=== PATIENT | male | born 1950 | race Caucasian/White ===

== ENCOUNTER 2020-01-17 06:06 | Outpatient (REF) | payer MEDICARE, BC, SELFPAY ==
[2020-01-17 11:27] LABS: Hematocrit 49.6 % (42-52); Hemoglobin 16.2 g/dl (14.0-18.0); Mean Corpuscular HGB Conc 32.7 g/dl (31.0-36.0); Mean Corpuscular Hemoglobin 29.8 pg (27.0-33.0); Mean Corpuscular Volume 91.2 fL (80-98); Mean Platelet Volume 10.3 fL (9.4-12.4); Platelet Count 158 X10*3/uL (160-400); Red Blood Count 5.44 X10*6/uL (4.60-5.80); Red Cell Distribution Width 12.1 % (11.0-16.0); White Blood Count 5.8 X10*3/uL (4.8-10.8)
[2020-01-17 12:25] LABS: Alanine Aminotransferase 13 U/L (0-40); Albumin Level 4.3 g/dL (3.5-5.0); Alkaline Phosphatase 78 U/L (39-117); Anion Gap 12 (12-20); Aspartate Amino Transferase 14 U/L (5-37); Blood Urea Nitrogen 22 mg/dL (9-16); Calcium 8.6 mg/dL (8.4-10.2); Carbon Dioxide 31 mmol/L (22-29); Chloride 103 mmol/L (96-108); Cholesterol 188 mg/dL; Estimated Glomerular Filt Rate > 60; Glucose Fasting 96 mg/dL (60-99); HDL Cholesterol 38 mg/dL; LDL Cholesterol Calculated 131 mg/dl; Potassium 4.1 mmol/l (3.3-5.1); Sodium 142 mmol/L (135-145); Triglycerides 98 mg/dL
[2020-01-17 12:45] LABS: Prostate Specific Antigen 0.69 ng/mL (<0.05-4.0)
== END 2020-01-17 06:07 | disposition home or self-care (01) ==
LOC: HO.HMGCLDS 06:06
PROVIDERS: PCP Internal Medicine; Visit Provider Urology
DX: Z00.00 Encounter for general adult medical examination without abnormal findings (principal); C61 Malignant neoplasm of prostate
CPT/HCPCS: 36415; 80053; 80061; 84153; 85027

== ENCOUNTER 2020-06-06 05:58 | Outpatient (REF) | payer MEDICARE, BC, SELFPAY ==
[2020-06-06 07:11] LABS: MANUAL DIFF FLAG NO
[2020-06-06 07:17] LABS: Basophils Percent Auto 0.4 % (0-2); Eosinophils Absolute Auto 0.1 X10*3/uL (0.0-0.4); Eosinophils Percent Auto 2.5 % (0-4); Hematocrit 45.3 % (42-52); Hemoglobin 15.6 g/dl (14.0-18.0); Imm Gran Abs Auto 0.03 X10*3/uL (0.00-0.03); Imm Gran Pct Auto 0.6 % (0.0-0.4); Lymphocytes Absolute Auto 1.2 X10*3/uL (1.2-4.9); Mean Corpuscular HGB Conc 34.4 g/dl (31.0-36.0); Mean Corpuscular Hemoglobin 30.1 pg (27.0-33.0); Mean Corpuscular Volume 87.5 fL (80-98); Mean Platelet Volume 10.4 fL (9.4-12.4); Monocytes Absolute Auto 0.5 X10*3/uL (0.1-1.2); Monocytes Percent Auto 9.4 % (2-11); Neutrophils Absolute Auto 3.4 X10*3/uL (2.0-8.3); Neutrophils Percent Auto 64.1 % (45-73); Platelet Count 167 X10*3/uL (160-400); Red Blood Count 5.18 X10*6/uL (4.60-5.80); Red Cell Distribution Width 12.1 % (11.0-16.0); White Blood Count 5.2 X10*3/uL (4.8-10.8)
[2020-06-06 08:01] LABS: Alanine Aminotransferase 14 U/L (0-40); Albumin Level 4.4 g/dL (3.5-5.0); Alkaline Phosphatase 79 U/L (39-117); Anion Gap 14 (12-20); Aspartate Amino Transferase 16 U/L (5-37); Bilirubin Total 0.8 mg/dL (0.0-1.0); Blood Urea Nitrogen 17 mg/dL (9-16); Calcium 8.9 mg/dL (8.4-10.2); Carbon Dioxide 27 mmol/L (22-29); Chloride 105 mmol/L (96-108); Estimated Glomerular Filt Rate > 60; Glucose Random 104 mg/dL (60-115); Potassium 3.8 mmol/L (3.3-5.1); Sodium 142 mmol/L (135-145)
[2020-06-08 19:41] LABS: TS Negative Control Passed; TS Panel A 0; TS Panel B 0; TS Positive Control Passed; TSpotTB Negative (SeeBelow)
== END 2020-06-06 05:59 | disposition home or self-care (01) ==
LOC: HO.LAB 05:58
PROVIDERS: PCP Internal Medicine; Visit Provider Dermatology
DX: L40.0 Psoriasis vulgaris (principal)
CPT/HCPCS: 36415; 80053; 85025; 86481

== ENCOUNTER 2020-09-18 10:54 | Outpatient (REF) | payer MEDICARE, BC, SELFPAY ==
--- NOTE | ~2020-09-18 | US_ITS ---
EXAMINATION: US ABDOMEN COMPLETE CLINICAL INFORMATION: Chronic hepatitis C. COMPARISON: Ultrasound abdomen complete 02/08/2019 and 11/25/2017. MRI abdomen 03/16/2011. TECHNIQUE: Real-time imaging of the abdominal viscera. FINDINGS: PANCREAS: Normal. ABDOMINAL AORTA: The proximal, mid, and distal segments are normal in caliber. INFERIOR VENA CAVA: Visualized portions are normal. LIVER: Normal. The liver is normal in size. The liver contour is normal. Parenchymal echogenicity is normal. No focal hepatic lesion. There is no intrahepatic biliary duct dilatation seen. GALLBLADDER: Normal. The gallbladder is physiologically distended without evidence of stones, sludge, polyps, wall thickening or pericholecystic fluid. COMMON BILE DUCT: Normal in caliber measuring 0.2 cm in diameter. RIGHT KIDNEY: Normal. No hydronephrosis. No renal calculi or focal parenchymal lesions. The kidney measures 9.4 cm in maximum dimension. LEFT KIDNEY: Normal. No hydronephrosis. No renal calculi or focal parenchymal lesions. The kidney measures 8.7 cm in maximum dimension. SPLEEN: Normal. The spleen measures 11.1 cm in maximum dimension. FREE FLUID: None. US/US abdomen complete IMPRESSION: Unremarkable exam.
[2020-09-19 11:47] LABS: Alpha Fetoprotein 2.5 ng/mL (<6.1)
== END 2020-09-18 10:55 | disposition home or self-care (01) ==
LOC: HO.HMGCX 10:54
PROVIDERS: PCP Internal Medicine; Visit Provider Internal Medicine
DX: B18.2 Chronic viral hepatitis C (principal)
CPT/HCPCS: 36415; 76700; 82105

== ENCOUNTER 2023-07-09 08:29 | Outpatient (REF) | payer MEDICARE, BC, SELFPAY ==
[2023-07-09 10:25] LABS: MANUAL DIFF FLAG NO
[2023-07-09 10:48] LABS: Basophils Percent Auto 0.2 % (0-2); Eosinophils Absolute Auto 0.1 X10*3/uL (0.0-0.4); Eosinophils Percent Auto 2.1 % (0-4); Hematocrit 45.6 % (42.0-52.0); Hemoglobin 15.4 g/dl (14.0-18.0); Imm Gran Abs Auto 0.02 X10*3/uL (0.00-0.03); Imm Gran Pct Auto 0.3 % (0.0-0.4); Lymphocytes Absolute Auto 1.2 X10*3/uL (1.2-4.9); Lymphocytes Percent Auto 20.8 % (20-40); Mean Corpuscular HGB Conc 33.8 g/dl (31.0-36.0); Mean Corpuscular Hemoglobin 29.6 pg (27.0-33.0); Mean Corpuscular Volume 87.5 fL (80.0-98.0); Mean Platelet Volume 10.4 fL (9.4-12.4); Monocytes Absolute Auto 0.5 X10*3/uL (0.1-1.2); Monocytes Percent Auto 8.6 % (2-11); Neutrophils Absolute Auto 3.9 x10*3/uL (2.0-8.3); Platelet Count 173 X10*3/uL (160-400); Red Blood Count 5.21 X10*6/uL (4.60-5.80); White Blood Count 5.7 X10*3/uL (4.8-10.8)
[2023-07-09 11:07] LABS: Alanine Aminotransferase 18 U/L (0-40); Albumin Level 4.1 g/dL (3.5-5.0); Alkaline Phosphatase 98 U/L (39-117); Anion Gap 12 (12-20); Aspartate Amino Transferase 18 U/L (5-37); Bilirubin Total 0.7 mg/dL (0.0-1.0); Blood Urea Nitrogen 20 mg/dL (9-16); Calcium 9.2 mg/dL (8.4-10.2); Carbon Dioxide 26 mmol/L (22-29); Chloride 108 mmol/L (96-108); Estimated Glomerular Filt Rate > 60; Glucose Random 107 mg/dL (60-115); Potassium 3.9 mmol/L (3.3-5.1); Sodium 142 mmol/L (135-145); Total Protein 7.3 g/dL (6.5-8.0)
[2023-07-11 21:23] LABS: TS Negative Control Passed; TS Panel A 0; TS Panel B 1; TS Positive Control Passed; TSpotTB Negative (Negative)
== END 2023-07-09 08:30 | disposition home or self-care (01) ==
LOC: HO.HMGCLDS 08:29
PROVIDERS: PCP Internal Medicine; Visit Provider Dermatology
DX: L40.0 Psoriasis vulgaris (principal); L82.1 Other seborrheic keratosis
CPT/HCPCS: 36415; 80053; 85025; 86481

== ENCOUNTER 2024-08-30 08:22 | Outpatient (REF) | payer MEDICARE, BC, SELFPAY ==
--- NOTE | ~2024-08-30 | US_ITS ---
EXAMINATION: US ABDOMEN COMPLETE WITH LIVER ELASTOGRAPHY HISTORY: HEPATITIS c without hepatic coma TECHNIQUE: Real-time grayscale ultrasound imaging of the abdomen was performed and images were reviewed. COMPARISON: Comparison is made with the prior examination dated 09/18/2020. FINDINGS: Liver: The right lobe of the liver measures 14.5 cm in size. The left lobe of the liver measures 8.2 cm in size. The liver demonstrates mildly increased echotexture, consistent with steatosis. No focal mass or intrahepatic biliary ductal dilatation is identified. There is normal hepatopedal flow in the portal vein. Ultrasound elastography of the liver was performed with 10 separate measurements of the liver parenchyma with the patient in the supine position. Measurements were obtained approximately 2 cm below Reilly's capsule and perpendicular to the capsule. The median shear wave velocity is 1.75 m/s. The interquartile range/median (IQR/median) is 0.41. Gallbladder and biliary tree: The gallbladder is unremarkable, without evidence of calculi, wall thickening, or pericholecystic fluid. There is no sonographic Pereyra sign. The common bile duct is normal in caliber measuring 4 mm. Kidneys: The right kidney measures 10.6 cm in length. The left kidney measures 10.0 cm in length. The kidneys are unremarkable, without evidence of masses, hydronephrosis, or calculi. Pancreas: The pancreatic head, neck, and body are unremarkable. The pancreatic tail is obscured by bowel gas. Spleen: The spleen is normal in size and contour, measuring 12.3 cm in length. Abdominal aorta and inferior vena cava: The visualized portions of the abdominal aorta and inferior vena cava are normal in caliber. There is no free fluid in the abdomen. US/US abdomen comp w elastography IMPRESSION: Mild hepatic steatosis. The median shear wave velocity in the liver is 1.75 m/s, corresponding to a median liver stiffness of 9.2 kPa. The IQR/median value is 0.41. This is indicative of a poor quality data set, and the estimated liver stiffness may be unreliable. Findings are indicative of a high elastography value suggestive of compensated advanced chronic liver disease. REFERENCE: Society of Radiologists in Ultrasound Liver Stiffness Thresholds (2020): LIVER STIFFNESS THRESHOLDS: *Shear wave velocity less than 1.3 m/s (Liver Stiffness equal or less than 5 kPa): High probability of being normal. *Shear wave velocity less than 1.7 m/s (Liver Stiffness less than 9 kPa): In the absence of other known clinical signs, rules out compensated advanced chronic liver disease. *Shear wave velocity between 1.7-2.1 m/s (Liver Stiffness 9-13 kPa): Suggestive of compensated advanced chronic liver disease but need further test for confirmation. *Shear wave velocity between 2.1-2.4 m/s (Liver Stiffness 13-17 kPa): Rules in compensated advanced chronic liver disease. *Shear wave velocity greater than 2.4 m/s (Liver Stiffness over 17 kPa): Suggestive of clinically significant portal hypertension. QUALITY OF DATA SET: *IQR/Median value equal or less than 0.30 implies a quality data set. *IQR/Median value over 0.30 implies a poor quality data set. SIGNIFICANT CHANGE FROM PRIOR EXAM: Significant change if liver stiffness measurement is 10% or greater from prior exam. OTHER CONSIDERATIONS: The stage of liver fibrosis may be overestimated in the setting of acute hepatitis, liver inflammation, elevated liver function tests, hepatic vascular congestion, obstructive cholestasis, non-fasting state, and infiltrative diseases such as amyloidosis and lymphoma. In some patients with NAFLD, the liver stiffness thresholds for compensated advanced chronic liver disease may be lower. In causes other than viral hepatitis and NAFLD, liver stiffness thresholds are not well established. Electronically signed by: To Iyer MD 08/30/2024 09:55 AM EDT
--- OUTSIDE RECORDS SUMMARY | 2024-08-30 08:40 | XMS_ITS | Patient Health Record ---
Author Organization [facility] Address [address] [place] [address] Care Team Providers Care Mortar Carrier Name Role Phone Pablo Carney MD Primary Care Provider UnavailTo Burger [phone] Allergies Allergen (clinical drug ingredient) Drug/Non Drug Allergy documented on EMR Reaction Allergy Type Onset Date Status latex bandages (uncoded) rash Allergy Active Reason For Referral No Information Medications Medication SIG (Take, Route, Fr equency, Duration) Notes Start Date End Date Status Tremfya 100 MG/ML 1 ml Subcutaneous every 56 days Active Immunizations Vaccine Route Administration Date Status Comme nts Influenza Unknown 12/05/2019 Administered Influenza Unknown 02/07/2019 Refused Influenza Unknown 07/19/2024 Refused Problems Problem Type SNOMED Code ICD Code Onset Dates Problem Status W/U Status Risk Notes Problem 400177514 History of adenomatous polyp of colon (Z86.010) Active confirmed Problem 357442703 Tubular adenoma of colon (D12.6) Active confirmed Problem 938769212 Chronic hepatitis C without hepatic coma (B18.2) Active confirmed Vital Signs Temperature 97.5 degrees Fahrenheit 07/19/2024 Blood pressure diastolic 01 mm Hg 07/19/2024 Height 71 in 07/19/2024 Blood pressure systolic 001 mm Hg 07/19/2024 Weight 175 lbs 07/19/2024 BMI 24.4 kg/m2 07/19/2024 Procedures Procedure Date Ordered Date Performed Result Body Sit e COLONOSCOPY 07/19/2024 N/A Encounters Encounter Location Date Provider Diagnosis [facility] [address] [place] [address] 07/19/2024 To Valentino History of adenomato us polyp of colon Z86.010 ; Colon cancer screening Z12.11 and Chronic hepatitis C without hepatic coma B18.2 Assessments Encounter Date Diagnosis (ICD Code) Assessment Notes Treatment Notes Treatment Clinical Notes Section Notes 07/19/2024 Colon cancer screening (ICD-10 - Z12.11) 07/19/2024 History of adenomatous polyp of colon (ICD-10 - Z86.010) 07/19/2024 Chronic hepatitis C without hepatic coma (ICD-10 - B18.2) Plan Of Treatment Pending Test Test Name Order Date COLONOSCOPY 07/19/2024 BUN 03/04/2011 CREATININE 03/04/2011 LIVER PROFILE 06/09/2014 LIVER PROFILE 06/06/2014 LIVER PROFILE 07/31/2014 LIVER PROFILE 03/15/2014 LIVER PROFILE 10/11/2014 CBC w DIFF 06/09/2014 CBC w DIFF 06/06/2014 CBC w DIFF 03/15/2014 CBC w DIFF 10/11/2014 ALPHA-FETOPROTEIN,TUMOR MARKER 4 ALPHA-FETOPROTEIN,TUMOR MARKER 1 ALPHA-FETOPROTEIN,TUMOR MARKER 3 ALPHA-FETOPROTEIN,TUMOR MARKER 5 ALPHA-FETOPROTEIN,TUMOR MARKER 8 HEPATITIS C VIRAL LOAD 11/16/2017 HEPATITIS C VIRAL LOAD 10/11/2014 HEPATITIS C VIRAL LOAD 03/15/2014 HEPATITIS C VIRAL LOAD 06/09/2014 HEPATITIS C VIRAL LOAD 07/31/2014 HEPATITIS C VIRAL LOAD 06/06/2014 MRI ABD W&WO CONTRAST 03/04/2011 US ABD 02/03/2011 US ABD 09/12/2020 HCV LIVER FIBROSIS, FIBRO TEST 5 US abdomen comp w elastography 5 Future Test Test Name Order Date COLONOSCOPY 08/08/2013 COLONOSCOPY 02/07/2019 Next Appt Details Provider Name:To Molina Chicho , 10/27/2024 09:30:00 AM, [address] [facility] , [place], [place], [phone], Insurance Providers Payer Name Payer Address Payer Phone Subscriber Number Group Number Insured Name Patient Relationship to Insured Coverage Start Date Coverage End Date MEDICARE OF [place] [address] [place] [address] [phone] [id number] ARCHANA BELTRAN Self - patient is the insured [facility] [address] [place], [place] [id number] ARCHANA BELTRAN Self - patient is the insured Medical (General) History Medical History History ICD Code Tubular adenomas in 11/2003 a nd colonoscopy in 08/2008 was negative for polyps. Chronic hepatitis C--3 liver biopsies--most recent one was in 02/2011-Gr 1.5/ and St I./--no sig changes compard to 2002 and 1991---In 1998 he was treated with nonpegylated IF TIW and Ribavirin for 7 months, but without sustained response--Genotype 1. AFP of 8.4 and normal liver and spleen MRI in 03/2011. AST 71 and ALT of 102, WBC 3.6, Hgb 14.9, and plts 100K, INR 1.1 and PT 12.4 in 11/2012. Treateded with 12 weeks of Harvoni from 05/2014-08/2014--nondetectable Hep C viral load in 02/2015 with normal LFT's, 06/2016,11/2017 as well. Hep C was also nondetectable in 02/2019 Denies [place],DM,CVA,Lung disease,renal dise ase Hx of former alcohol abuse--sobriety sin ce 1996 Mild sigmoid diverticulosis Internal hemorrhoids Colonoscopy in 11/2013 with r emoval of a tubular adenoma, sigmoid diverticulosis, and internal hemorrhoids Prostate cancer diagnosed 07/2017--XRT in 12/2017 Psoriasis Negative colonoscopy in 07/2019 Surgical History Surgery Date(Month/Year) Cataracts both eyes 08/2018 Eye surgery Hernia surgery
[2024-09-06 02:19] LABS: FIB-ALT 15 U/L (9-46); FIB-Alpha-2-Macroglobulin 369 mg/dL (106-279); FIB-Apolipoprotein A1 144 mg/dL (94-176); FIB-GGT 17 U/L (3-70); FIB-Haptoglobin 135 mg/dL (43-212); FIB-Total Bilirubin 0.6 mg/dL (0.2-1.2); Liver Fibrosis Score 0.61; Liver Fibrosis Stage F3; Nec Inflam Act Grade A0; Nec Inflam Act Score 0.08
== END 2024-08-30 08:23 | disposition home or self-care (01) ==
LOC: HO.US 08:22
PROVIDERS: PCP Internal Medicine; Visit Provider Internal Medicine
DX: B18.2 Chronic viral hepatitis C (principal)
CPT/HCPCS: 36415; 76700; 76981; 81596; 82105

== ENCOUNTER → 2024-08-30 09:15 | Outpatient (BNV) | payer MEDICARE, BC, SELFPAY | PROVIDERS: PCP Internal Medicine; Visit Provider Radiology Diagnostic Radiology | DX: B19.20 Unspecified viral hepatitis C without hepatic coma (principal) | CPT/HCPCS: 76700; 76981 ==

== ENCOUNTER 2024-10-27 07:11 | Day surgery (SDC) | payer MEDICARE, BC, SELFPAY ==
--- OUTSIDE RECORDS SUMMARY | 2024-10-03 14:29 | XMS_ITS | Patient Health Record ---
Author Organization [facility] Address [address] [place] [address] Care Team Providers Care Interactive Web Developer Name Role Phone Pablo Carney MD Primary Care Provider To Ríos [phone] Allergies Allergen (clinical drug ingredient) Drug/Non Drug Allergy documented on EMR Reaction Allergy Type Onset Date Status latex bandages (uncoded) rash Allergy Active Results Component Value Reference Range Notes Alpha Fetoprotein Reviewed date:09/06/2024 01:49:22 PM Interpretation: Performing Lab:[address] [address] Notes/Report: Alpha Fetoprotein 3.0 <6.1 ng/mL This test was performed using the Estefani Avoca chemiluminescent method. Values obtained from different assay methods cannot be used interchangeably. AFP levels, regardless of value, should not be interpreted as absolute evidence of the presence or absence of disease. THIS TEST WAS PERFORMED AT: [facility] [address] [place] [id number] KASIE PRESTON MD Liver Fibrosis Pnl Reviewed date:09/06/2024 01:49:12 PM Interpretation: Performing Lab:[address] [address] Notes/Report: Liver Fibrosis Score 0.61 Liver Fibrosis Stage F3 Liver Fibrosis Interpretation SEE NOTE advanced fibrosis Fibro Test Score (f) Metavir Score f>=0 and f<=0.21 : F0 (no fibrosis) f>0.21 and f<=0.27 : F0-F1 (no fibrosis) f>0.27 and f<=0.31 : F1 (minimal fibrosis) f>0.31 and f<=0.48 : F1-F2 (minimal fibrosis) f>0.48 and f<=0.58 : F2 (moderate fibrosis) f>0.58 and f<=0.72 : F3 (advanced fibrosis) f>0.72 and f<=0.74 : F3-F4 (advanced fibrosis) f>0.74 and f<=1.00 : F4 (severe fibrosis) Nec Inflam Act Score 0.08 Nec Inflam Act Grade A0 Nec Inflam Act Interpretation SEE NOTE no activity ActiTest Score (a) Metavir Score a>=0 and a<=0.17 : A0 (no activity) a>0.17 and a<=0.29 : A0-A1 (no activity) a>0.29 and a<=0.36 : A1 (minimal activity) a>0.36 and a<=0.52 : A1-A2 (minimal activity) a>0.52 and a<=0.60 : A2 (significant activity) a>0.60 and a<=0.62 : A2-A3 (significant activity) a>0.62 and a<=1.00 : A3 (severe activity) XJO-Rzutr-4-Macroglobulin 369 106-279 mg/dL FIB-Haptoglobin 135 43-212 mg/dL FIB-Apolipoprotein A1 144 94-176 mg/dL FIB-Total Bilirubin 0.6 0.2-1.2 mg/dL FIB-GGT 17 3-70 U/L FIB-ALT 15 9-46 U/L Reference ID [id number] Footnote SEE NOTE The reliability of results is dependent on compliance with the preanalytical and analytical conditions recommended by [employer]. The tests have to be deferred for: acute hemolysis, acute hepatitis, acute inflammation, extra hepatic cholestasis. The advice of a specialist should be sought for interpretation in chronic hemolysis and Gilbert's syndrome. The test interpretation is not validated in liver transplant patients. Isolated extreme values of one of the components should lead to caution in interpreting the results. In case of discordance between a biopsy result and a test, it is recommended to seek the advice of a specialist. The causes of these discordances could be due to a flaw of the test or to a flaw in the biopsy: i.e. a liver biopsy has a 33% variability rate for one fibrosis stage. FibroTest is interpretable for chronic hepatitis B and C, alcoholic and non alcoholic steatosis. ActiTest is interpretable for chronic hepatitis B and C. The performance characteristics have been determined by [employer] [facility]. It has not been cleared or approved by the U.S. Food and Drug Administration. Performance characteristics refer to the analytical performance of the test. [employer], the associated logo, [employer] and all associated [employer] javier are the registered trademarks of [employer]. All third democrat javier - (R) and (TM) - are the property of their respective owners. (C) 5235-1456 [employer]. All rights reserved. THIS TEST WAS PERFORMED AT: [employer] [facility] [address] [place] [address] SHANNAN GUEVARA MD,PHD,DIANA US abdomen comp w elastograp hy (Not yet reviewed by provider) Interpretation: Performing Lab: Notes/Report: [address] [address] Ultrasound Report Signed Patient: Archana Beltran MR#: [id number] : 1950 Acct:[id number] Age/Sex: 74 / M ADM Date: 08/30/24 Loc: HO.US Attending Dr: To Valentino MD Ordering Physician: To Valentino MD Date of Service: 08/30/24 Procedure(s): US abdomen comp w elastography Accession Number(s): [id number] cc: Pablo Carney MD; To Valentino MD EXAMINATION: US ABDOMEN COMPLETE WITH LIVER ELASTOGRAPHY HISTORY: HEPATITIS c without hepatic coma TECHNIQUE: Real-time grayscale ultrasound imaging of the abdomen was performed and images were reviewed. COMPARISON: Comparison is made with the prior examination dated 09/18/2020. FINDINGS: Liver: The right lobe of the liver measures 14.5 cm in size. The left lobe of the liver measures 8.2 cm in size. The liver demonstrates mildly increased echotexture, consistent with steatosis. No focal mass or intrahepatic biliary ductal dilatation is identified. There is normal hepatopedal flow in the portal vein. Ultrasound elastography of the liver was performed with 10 separate measurements of the liver parenchyma with the patient in the supine position. Measurements were obtained approximately 2 cm below Reilly's capsule and perpendicular to the capsule. The median shear wave velocity is 1.75 m/s. The interquartile range/median (IQR/median) is 0.41. Gallbladder and biliary tree: The gallbladder is unremarkable, without evidence of calculi, wall thickening, or pericholecystic fluid. There is no sonographic Pereyra sign. The common bile duct is normal in caliber measuring 4 mm. Kidneys: The right kidney measures 10.6 cm in length. The left kidney measures 10.0 cm in length. The kidneys are unremarkable, without evidence of masses, hydronephrosis, or calculi. Pancreas: The pancreatic head, neck, and body are unremarkable. The pancreatic tail is obscured by bowel gas. Spleen: The spleen is normal in size and contour, measuring 12.3 cm in length. Abdominal aorta and inferior vena cava: The visualized portions of the abdominal aorta and inferior vena cava are normal in caliber. There is no free fluid in the abdomen. US/US abdomen comp w elastography IMPRESSION: Mild hepatic steatosis. The median shear wave velocity in the liver is 1.75 m/s, corresponding to a median liver stiffness of 9.2 kPa. The IQR/median value is 0.41. This is indicative of a poor quality data set, and the estimated liver stiffness may be unreliable. Findings are indicative of a high elastography value suggestive of compensated advanced chronic liver disease. REFERENCE: Society of Radiologists in Ultrasound Liver Stiffness Thresholds (2020): LIVER STIFFNESS THRESHOLDS: *Shear wave velocity less than 1.3 m/s (Liver Stiffness equal or less than 5 kPa): High probability of being normal. *Shear wave velocity less than 1.7 m/s (Liver Stiffness less than 9 kPa): In the absence of other known clinical signs, rules out compensated advanced chronic liver disease. *Shear wave velocity between 1.7-2.1 m/s (Liver Stiffness 9-13 kPa): Suggestive of compensated advanced chronic liver disease but need further test for confirmation. *Shear wave velocity between 2.1-2.4 m/s (Liver Stiffness 13-17 kPa): Rules in compensated advanced chronic liver disease. *Shear wave velocity greater than 2.4 m/s (Liver Stiffness over 17 kPa): Suggestive of clinically significant portal hypertension. QUALITY OF DATA SET: *IQR/Median value equal or less than 0.30 implies a quality data set. *IQR/Median value over 0.30 implies a poor quality data set. SIGNIFICANT CHANGE FROM PRIOR EXAM: Significant change if liver stiffness measurement is 10% or greater from prior exam. OTHER CONSIDERATIONS: The stage of liver fibrosis may be overestimated in the setting of acute hepatitis, liver inflammation, elevated liver function tests, hepatic vascular congestion, obstructive cholestasis, non-fasting state, and infiltrative diseases such as amyloidosis and lymphoma. In some patients with NAFLD, the liver stiffness thresholds for compensated advanced chronic liver disease may be lower. In causes other than viral hepatitis and NAFLD, liver stiffness thresholds are not well established. Electronically signed by: To Iyer MD 08/30/2024 09:55 AM EDT Dictated By: To Iyer MD Signed By: <Electronically signed by To Iyer MD in OV> 08/30/2455 DD/ 4 TD/TT: 08/30/24930 Health Administration Teacher: Reason For Referral No Information Medications Medication [...] Problem Status W/U Status Risk Notes Problem 564179249 History of adenomatous polyp of colon (Z86.010) Active confirmed Problem 080997670 Tubular adenoma of colon (D12.6) Active confirmed Problem 840911054 Chronic hepatitis C without hepatic coma (B18.2) Active confirmed Vital Signs Temperature 97.5 degrees Fahrenheit 07/19/2024 Blood pressure diastolic 01 mm Hg 07/19/2024 Height 71 in 07/19/2024 Blood pressure systolic 001 mm Hg 07/19/2024 Weight 175 lbs 07/19/2024 BMI 24.4 kg/m2 07/19/2024 Procedures Procedure Date Ordered Date Performed Result Body Sit e COLONOSCOPY 07/19/2024 N/A Encounters Encounter Location Date Provider Diagnosis [facility] [address] [place] [phone] 07/19/2024 To Valentino History of adenomato us [...] 5 US abdomen comp w elastography 5 US abdomen comp w elastography 5 Future Test Test Name Order Date COLONOSCOPY 08/08/2013 COLONOSCOPY 02/07/2019 Next Appt Details Provider Name:To Valentino , 10/27/2024 08:30:00 AM, [address] [place] [address] , [place], [place], [phone], Insurance Providers Payer Name Payer Address Payer Phone Subscriber Number Group Number Insured Name Patient Relationship to Insured Coverage Start Date Coverage End Date MEDICARE OF [place] [address] [place] [address] [id number] ARCHANA BELTRAN Self - patient is the insured [facility] [address] [place], [place] [id number] [phone] [id number] ARCHANA BELTRAN Self - patient is the insured Medical (General) History Medical History History ICD Code Tubular adenomas in 11/2003 a nd colonoscopy in 08/2008 was negative for polyps. Chronic hepatitis C--3 liver biopsies--most recent one was in 02/2011-Gr 1.5/ and St I.--no sig changes compard to 2002 and 1991---In [...] C was also nondetectable in 02/2019 Denies [place],DM,CVA,Lung disease,renal dise ase Hx of former alcohol abuse--sobriety sin ce 1996 Mild sigmoid diverticulosis Internal hemorrhoids Colonoscopy in 11/2013 with r wendi of a tubular adenoma, sigmoid diverticulosis, and internal hemorrhoids Prostate cancer diagnosed 07/2017--XRT in 12/2017 Psoriasis Negative colonoscopy in 07/2019 Surgical History Surgery Date(Month/Year) Cataracts both eyes 08/2018 Eye surgery Hernia surgery
[2024-10-27 07:34] VITALS: BMI 24.0
[2024-10-27 07:38] VITALS: BP 138/82; PULSE 72; RESP 16; TEMP 36.8; O2SAT 95
[2024-10-27] MEDS: Lactated Ringers 1,000 ML 80 ML IVCONT (07:53)
--- NOTE | 2024-10-27 07:53 | P.CONAN_ITS ---
[facility] Active Problems Active Problems: All Active Problems (Updated 10/27/24 @ 07:22 by Cristel Baker RN) Visit for suture removal (Acute) Laceration of thumb (Acute) Past Medical History Medical History Psoriasis Prostate cancer Tubular adenoma Sigmoid diverticulosis Internal hemorrhoid Alcohol abuse Bilateral cataracts Hernia Plaque psoriasis Functional capacity: independent ambulation Family History Family history of problems with anesthesia: No Surgical History Surgical History History of liver biopsy H/O colonoscopy History of Problems with Anesthesia: No Social History Social History Patient Tobacco Use Status: Former Tobacco user Use of substances other than those prescribed or required for medical reasons: No Are you DNR?: No Advance Directives: No Advance Directives Information Provided: Yes Poor oral hygiene: No Meds Allergies Allergy/AdvReac Type Severity Reaction Status Date / Time latex Allergy Rash Verified 10/27/24 07:19 Active Medications: Current Medications Lactated Ringer's (Lr) 1,000 mls @ 80 mls/hr IVCONT .[id number] LISSET Last Admin: 10/27/24 07:53 Dose: 80 mls/hr Sodium Biphosphate/Sodium Phosphate (Sodium Phosphate,Bradley-Dibasic 133 Ml Enema) 133 ml WA ONCE PRN PRN Reason: Poor Colonoscopy Prep Results Home Medications ?Medication ?Instructions ?Recorded ?Confirmed ?Last Taken ?Type clobetasol 0.05 % shampoo 1 appl topical Q OTHER DAY 0 09/11/20 Unknown History cyclobenzaprine 10 mg tablet 10 mg PO TID 09/11/20 Un known History guselkumab 100 mg/mL subcutaneous mg subcut 09/11/20 Unknown History syringe hydrocodone 7.5 mg-acetaminophen 1 tab PO QID PRN 12/24 Unknown History 325 mg tablet ibuprofen 800 mg tablet 800 mg PO TID 09/11/20 Unkn own History Exam Height,Weight and Vital Signs: Height 5 ft 10 in Weight 75.8 kg Last Vital Signs Temp 98.2 F 10/27/24 07:38 Pulse 72 10/27/24 07:38 Resp 16 10/27/24 07:38 BP 138/82 10/27/24 07:38 Pulse Ox 95 10/27/24 07:38 O2 Del Method Room Air 10/27/24 07:38 Airway Mallampati Class: II TM Dist: >3cm Neck ROM: Full Heart: RRR Lungs: CTA Assessment and Plan Assessment Anesthesia Assessment: Anesthesia Plan Discussed Final Anesthetic Review Family History of Problems with Anesthesia: No History of Problems with Anesthesia: No NPO: Yes ASA Class: II Final Preanesthetic Review: Meds/Allgs Chart Reviewed, Consent Obtained/Reviewed and Anes Risks/Benef Reviewed Patient Risk: Low Procedure Risk: Low Anesthetic Plan Anesthetic Plan: MAC: Disposition: Standard PACU
[2024-10-27 09:36] VITALS: BP 93/54; PULSE 76; RESP 16; TEMP 36.4; O2SAT 96
--- NOTE | 2024-10-27 09:39 | P.BOP_ITS ---
Brief Operative Note Date of Service: 10/27/24 Pre-op diagnosis: Screening Post-op diagnosis: other (Polyps) Procedure: Colonoscopy to the cecum and TI with bx/removal of polyps, and cold snare polypectomy at 15cm Surgeon: To Valentino MD Anesthesia: MAC Was an Television News Producer used for this Procedure?: No Estimated blood loss (mL): 2.0 Pathology: other (A. Cecal polyp B. Ascending colon polyp C. Polyp at 15cm) Condition: stable Disposition: PACU
[2024-10-27 09:51] VITALS: BP 111/70; PULSE 58; RESP 16; O2SAT 94
[2024-10-27 10:09] VITALS: BP 123/80; PULSE 62; RESP 18; TEMP 36.1; O2SAT 95
--- NOTE | 2024-10-27 10:19 | OP_ITS ---
DATE OF SERVICE: 10/27/2024 SURGEON: To Valentino MD INDICATIONS: The patient presents for evaluation of colorectal cancer screening, personal history of tubular adenomas of the colon, and family history of colon cancer. Full consent has been obtained from him for this, including risks of bleeding and perforation. PREOPERATIVE DIAGNOSIS: POSTOPERATIVE DIAGNOSIS: PROCEDURE PERFORMED: Colonoscopy to the cecum and terminal ileum with biopsy and removal of polyps, and cold snare polypectomy. ESTIMATED BLOOD LOSS: COMPLICATIONS: ANESTHESIA: Medication used, monitored anesthesia care. ASSISTANTS: SPECIMENS: PREOPERATIVE DIAGNOSES: Colorectal cancer screening, personal history of tubular adenomas of the colon, and family history of colon cancer. POSTOPERATIVE DIAGNOSES: Colorectal cancer screening, personal history of tubular adenomas of the colon, and family history of colon cancer, colon polyps, diverticulosis, and internal hemorrhoids. DESCRIPTION OF PROCEDURE: The patient was placed in the left lateral decubitus position. The digital rectal exam revealed no abnormalities. The [employer] video pediatric colonoscope was entered into the rectum and advanced easily to the cecum. Once in the cecum, I did identify cecal pouch with appendiceal orifice and a normal-appearing ileocecal valve. The terminal ileum was cannulated and appeared normal. The scope was withdrawn back in the colon. The entire cecum and ileocecal were well visualized and appeared normal other than a 3 mm polyp, which was biopsied and completely removed with a cold biopsy forceps. The scope was then slowly withdrawn assessing all mucosal surfaces carefully. Preparation was excellent. In the ascending colon was a flat, approximately 3 or 4 mm polyp, which was biopsied and completely removed with a cold biopsy forceps. At 15 cm was a flat, but raised approximately 5 mm polyp, which was removed by cold snare polypectomy and recovered by suction. The polypectomy site appeared clean, without any sign of residual polyp nor bleeding. I did not visualize any other polyps, colitis, nor angiodysplasia. There was a mild amount of sigmoid diverticulosis. In the rectum, scope was retroflexed visualizing internal hemorrhoids, but no other pathology. The rectal mucosa appeared normal. The scope was straightened and withdrawn from the patient. He tolerated the procedure well and was returned to the recovery area in stable condition. IMPRESSION: 1. Small colon polyps. 2. Diverticulosis. 3. Internal hemorrhoids. PLAN: The results of the pathology will be checked. I would recommend a repeat colonoscopy in 5 years for further screening and surveillance. He was advised to see me in 1 year for followup of his previous hepatitis C. He will otherwise see me on a p.r.n. basis. MD RACHID Ortiz/RAMON / [id number] MTDD
--- NOTE | 2024-10-27 11:29 | HO.POSTANES ---
Post Anesthesia Evaluation Post Anesthesia Evaluation Date of Service: 10/27/24 Vital Signs: Vital Signs Temp Pulse Resp BP Pulse Ox O2 Del Method 10/27/24 10:09 97.0 F 62 18 123/80 95 Room Air 10/27/24 09:51 58 16 111/70 94 Room Air 10/27/24 09:36 97.6 F 76 16 93/54 L 96 Room Air 10/27/24 07:38 98.2 F 72 16 138/82 95 Room Air Anesthesia: Monitored Mental Status: Awake Pain Control: Satisfactory Nausea/Vomiting: None Hydration: Adequate Anesthesia-Related Issues: No Anes. Related Issues
== END 2024-10-27 10:34 | disposition home or self-care (01) ==
PROVIDERS: PCP Internal Medicine; Visit Provider Internal Medicine
PROC: 0DJD8ZZ Inspection of Lower Intestinal Tract, Via Natural or Artificial Opening Endoscopic (ICD-10-PCS; CPT 45378; principal; 2024-10-27 08:30)
DX: Z12.11 Encounter for screening for malignant neoplasm of colon (principal); D12.0 Benign neoplasm of cecum; K57.30 Diverticulosis of large intestine without perforation or abscess without bleeding; K64.8 Other hemorrhoids; Z86.0101 Personal history of adenomatous and serrated colon polyps; Z80.0 Family history of malignant neoplasm of digestive organs; B18.2 Chronic viral hepatitis C; Z85.46 Personal history of malignant neoplasm of prostate; Z87.891 Personal history of nicotine dependence; Z79.899 Other long term (current) drug therapy
CPT/HCPCS: 45385; 45380; 88305; J2003; J2704